=== PATIENT | female | born 1990 | race Caucasian/White ===

== ENCOUNTER 2016-06-05 23:53 | Emergency (ER) | payer MEDICAID ==
[~2016-06-05] VITALS: Ht 160 cm; Wt 65.8 kg
[~2016-06-05 23:53] MED LIST: AMOXICOT500 MG PO; AMOXIL500 M1 PO; AMOXIL500 MG PO; AZITHROMYCIN D250 M1 PO; BACTRIM DS 8001 TA1 PO; BACTRIM DS 8001 TAB PO; BACTROBAN CR, 115 GM TP; CIPRO 500MG TA500 MG PO; ETODOLAC400 MG PO; FIORICET1 CAP PO; FLAGYL 500MG.500 MG PO; FLAGYL500 M1 PO; IBU-4400 MG PO; IBUPROFEN200 MG PO; IBUPROFEN400 MG PO; IBUPROFEN800 MG PO; KEFLEX 500MG.500 MG PO; LEVAQUIN 750 M750 MG PO; LORTAB 5/500 501 TAB PO; LORTAB 500 MG-71 TAB PO; MACROBID 100MG100 M1 PO; MEDROL 4MG. DOSE4 MG PO; MOTRIN 400MG.400 MG PO; NAPROSYN500 M1 PO; NOMEDS *; PERCOCET 5/3251 EACH PO; PHENERGAN 25MG.25 M1 PO; POTASSIUM CHLO10 ME3 PO; PRENATAL PLUS1 TA1 PO; PROMETHAZINE HC25 M1 PO; PYRIDIUM 200MG200 MG PO; RONDEC-DM 118118 ML PO; TESSALON PERLE100 MG PO; TRIMOX500 MG PO; VIBRAMYCIN 100100 MG PO; VOLTAREN75 MG PO; ZOFRAN ODT4 MG PO; Zofran4 MG PO
[2016-06-06 00:16] LABS: URINE BILIRUBIN - DIPSTICK NEGATIVE (NEG); URINE BLOOD 1+ (NEG)
--- NOTE | 2016-06-06 00:27 | Emergency Room Report ---
History of Present Illness Time Seen by MD Cohn Presenting Problem in Triage Pt arrived:Walked Presenting Problem:PT C/O RIGHT SIDED BACK PAIN THAT AT TIMES GOES DOWN HER RIGHT LEG AND MAKES HER LEG GIVE OUT. 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 N Clinical Suspician of Infection? N Mental Status: 1 - Regular (Normal Baseline) Sepsis Risk:Low Sepsis Risk Have you (or family members/close friends) recently traveled outside the [place]? N If Yes, where/when: Have you had exposure to infectious disease within the past month? N TB? Other? Specify: Source patient, RN notes reviewed, family, old records Exam Limitations no limitations Comment rt sided back pain with rad to rt lower leg and recent uti with rest to septra Cardiac Chest Pain Chest pain indicative of cardiac No Timing/Duration this evening Severity moderate ALLERGIES Coded Allergies: No Known Allergies (04/11/16) Home Medications Reported Medications No Known Home Medications History Medical History General CAD? No Angina: No [place]: No Hypertension? No Hyperlipidemia? No CHF? No DVT? No PE? No COPD? No Asthma? No Anemia? No GERD? No Gastric ulcers? No GI Bleed? No Hernia? No Thyroid Problems? No Hypothyroidism? No CVA? No Seizures? No Diabetes? No Renal Insuffiency? No End Stage Renal Disease? No UTI? No Stones? No BPH? No GB Disease: No Nephritic Syndrome? No Asplenia? No Hepatitis? No Sickle Cell Disease? No Arthritis? No Migraines? No Cataracts? No Glaucoma? No MRSA? No HIV? No TB? No Anxiety? No Depression? No Cancer? No More? 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 Respiratory denies cough, denies shortness of breath, denies wheezing Cardiovascular denies chest pain, denies palpitations, denies syncope Gastrointestinal denies abdominal pain, denies nausea, denies vomiting Genitourinary denies: abnormal vaginal bleeding, dysuria, frequency, hesitancy, hematuria. Musculoskeletal see HPI, back pain, denies joint pain, denies joint swelling, denies neck pain Skin denies rash Psychiatric/Neurological denies headache, denies seizure Physical Exam Vital Signs Vital Signs Date Time Temp Pulse Resp B/P Pulse O2 O2 Flow FiO2 Ox Delivery Rate 06/06 0007 22 06/05 2358 98.0 97 18 133/87 99 - WBC >12,000 or <4,000 or 10% bands? 2 or more SIRS Criteria Met? B/P:133/87 MAP:102 Creatinine >2.0? UA output<0.5ml/kg/hr for 2 hrs? Platelet count >100,000? Lactate >2.0mmol/1? INR >1.2 or PTT > than 60 sec? Evidence of Organ Dysfunction? Provider documented clinical suspician of infection? N Sepsis Criteria Count: 1 Sepsis Risk: Low Sepsis Risk General Appearance no apparent distress Eye Exam - bilateral eye PERRL, bilateral eye EOMI Ear, Nose, Throat normal ENT inspection Neck supple Respiratory Status No: respiratory distress. 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 No Results/Orders Laboratory Tests 06/06/16 0000: Urine Color YELLOW, Urine Appearance CLEAR, Urine pH 6.5, Ur Specific [place] 1.020, Urine Protein 1+ H, Urine Ketones NEGATIVE, Urine Blood 1+ H, Urine Nitrate NEGATIVE, Urine Bilirubin NEGATIVE, Urine Urobilinogen 0.2, Ur Leukocyte Esterase 2+ H, Urine RBC 3-5, Urine WBC 5-10, Urine Bacteria 1+, Urine Mucus 1+ , Urine Glucose NEGATIVE Current Medication Orders Sig/Cam Start time Last Medication Dose Route Stop Time Status Admin Acetaminophen/ 1 VICKI ONCE ONE 06/06 44 AC Codeine Phosphate PO 06/06 45 Indomethacin 25 MG ONCE ONE 06/06 44 AC PO 06/06 45 Levofloxacin 500 MG ONCE ONE 06/065 AC PO 06/06 45 Ketorolac 60 MG ONCE ONE 06/06 0015 DC 06/06 Tromethamine IM 06/066 0007 Ketorolac 0 .STK-MED ONE 06/06 0005 DC Tromethamine .ROUTE Orders Procedure Date/time Status URINALYSIS/COMPLETE 06/06 0003 Complete URINE 06/06 0003 Complete CULTURE, URINE 06/06 0000 Active Departure Departure Time of Disposition 0036 Disposition DC Home or Self Care(routine) Clinical Impression Primary Impression: Sciatica Qualifiers: Laterality: right Qualified Code: M54.31 - Sciatica, right side Secondary Impressions: UTI (urinary tract infection) Qualifiers: Urinary tract infection type: acute cystitis Hematuria presence: without hematuria Qualified Code: N30.00 - Acute cystitis without hematuria Condition STABLE Referrals Beto Saldaña (Family) Patient Instructions DI for Sciatica Additional Instructions use meds and see pcp for follow up and check with your pcp about culture results Discharge Counseling Counseled pt/family regarding diagnosis, test results, follow up needs Prescriptions Current Visit Scripts Ciprofloxacin HCl (Cipro 500MG TAB) 500 MG PO BID #14 TAB Meloxicam (Mobic 7.5MG) 7.5 MG PO DAILY #7 TAB ED Critical Care Critical Care No at 0043
--- NOTE | 2016-06-06 00:27 | Emergency Room Report ---
History of Present Illness Time Seen by MD Cohn Presenting Problem in Triage Pt arrived:Walked Presenting Problem:PT C/O RIGHT SIDED BACK PAIN THAT AT TIMES GOES DOWN HER RIGHT LEG AND MAKES HER LEG GIVE OUT. 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 N Clinical Suspician of Infection? N Mental Status: 1 - Regular (Normal Baseline) Sepsis Risk:Low Sepsis Risk Have you (or family members/close friends) recently traveled outside the [place]? N If Yes, where/when: Have you had exposure to infectious disease within the past month? N TB? Other? Specify: Source patient, RN notes reviewed, family, old records Exam Limitations no limitations Comment rt sided back pain with rad to rt lower leg and recent uti with rest to septra Cardiac Chest Pain Chest pain indicative of cardiac No Timing/Duration this evening Severity moderate ALLERGIES Coded Allergies: No Known Allergies (04/11/16) Home Medications Reported Medications No Known Home Medications History Medical History General CAD? No Angina: No [place]: No Hypertension? No Hyperlipidemia? No CHF? No DVT? No PE? No COPD? No Asthma? No Anemia? No GERD? No Gastric ulcers? No GI Bleed? No Hernia? No Thyroid Problems? No Hypothyroidism? No CVA? No Seizures? No Diabetes? No Renal Insuffiency? No End Stage Renal Disease? No UTI? No Stones? No BPH? No GB Disease: No Nephritic Syndrome? No Asplenia? No Hepatitis? No Sickle Cell Disease? No Arthritis? No Migraines? No Cataracts? No Glaucoma? No MRSA? No HIV? No TB? No Anxiety? No Depression? No Cancer? No More? 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 Respiratory denies cough, denies shortness of breath, denies wheezing Cardiovascular denies chest pain, denies palpitations, denies syncope Gastrointestinal denies abdominal pain, denies nausea, denies vomiting Genitourinary denies: abnormal vaginal bleeding, dysuria, frequency, hesitancy, hematuria. Musculoskeletal see HPI, back pain, denies joint pain, denies joint swelling, denies neck pain Skin denies rash Psychiatric/Neurological denies headache, denies seizure Physical Exam Vital Signs Vital Signs Date Time Temp Pulse Resp B/P Pulse O2 O2 Flow FiO2 Ox Delivery Rate 06/06 0007 22 06/05 2358 98.0 97 18 133/87 99 - WBC >12,000 or <4,000 or 10% bands? 2 or more SIRS Criteria Met? B/P:133/87 MAP:102 Creatinine >2.0? UA output<0.5ml/kg/hr for 2 hrs? Platelet count >100,000? Lactate >2.0mmol/1? INR >1.2 or PTT > than 60 sec? Evidence of Organ Dysfunction? Provider documented clinical suspician of infection? N Sepsis Criteria Count: 1 Sepsis Risk: Low Sepsis Risk General Appearance no apparent distress Eye Exam - bilateral eye PERRL, bilateral eye EOMI Ear, Nose, Throat normal ENT inspection Neck supple Respiratory Status No: respiratory distress. 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 No Results/Orders Laboratory Tests 06/06/16 0000: Urine Color YELLOW, Urine Appearance CLEAR, Urine pH 6.5, Ur Specific [place] 1.020, Urine Protein 1+ H, Urine Ketones NEGATIVE, Urine Blood 1+ H, Urine Nitrate NEGATIVE, Urine Bilirubin NEGATIVE, Urine Urobilinogen 0.2, Ur Leukocyte Esterase 2+ H, Urine RBC 3-5, Urine WBC 5-10, Urine Bacteria 1+, Urine Mucus 1+ , Urine Glucose NEGATIVE Current Medication Orders Sig/Cam Start time Last Medication Dose Route Stop Time Status Admin Acetaminophen/ 1 VICKI ONCE ONE 06/06 44 AC Codeine Phosphate PO 06/06 45 Indomethacin 25 MG ONCE ONE 06/06 44 AC PO 06/06 45 Levofloxacin 500 MG ONCE ONE 06/065 AC PO 06/06 45 Ketorolac 60 MG ONCE ONE 06/06 0015 DC 06/06 Tromethamine IM 06/066 0007 Ketorolac 0 .STK-MED ONE 06/06 0005 DC Tromethamine .ROUTE Orders Procedure Date/time Status URINALYSIS/COMPLETE 06/06 0003 Complete URINE 06/06 0003 Complete CULTURE, URINE 06/06 0000 Active Departure Departure Time of Disposition 0036 Disposition DC Home or Self Care(routine) Clinical Impression Primary Impression: Sciatica Qualifiers: Laterality: right Qualified Code: M54.31 - Sciatica, right side Secondary Impressions: UTI (urinary tract infection) Qualifiers: Urinary tract infection type: acute cystitis Hematuria presence: without hematuria Qualified Code: N30.00 - Acute cystitis without hematuria Condition STABLE Referrals Beto Saldaña (Family) Patient Instructions DI for Sciatica Additional Instructions use meds and see pcp for follow up and check with your pcp about culture results Discharge Counseling Counseled pt/family regarding diagnosis, test results, follow up needs Prescriptions Current Visit Scripts Ciprofloxacin HCl (Cipro 500MG TAB) 500 MG PO BID #14 TAB Meloxicam (Mobic 7.5MG) 7.5 MG PO DAILY #7 TAB ED Critical Care Critical Care No at 0043
[2016-06-06] MEDS ORDERED: MOBIC7.5 MG PO (00:43)
[2016-06-06] MEDS ORDERED: CIPRO 500MG TA500 MG PO (00:43)
[2016-06-06 01:17] VITALS: BP 128/85
== END 2016-06-06 01:17 | disposition home or self-care (01) ==
LOC: ER 23:53
PROVIDERS: Emergency Medicine
DX: M54.31 Sciatica, right side (principal); N30.00 Acute cystitis without hematuria

== ENCOUNTER 2016-12-30 13:58 | Emergency (ER) | payer MEDICAID ==
[~2016-12-30] VITALS: Ht 160 cm; Wt 72.6 kg
[~2016-12-30 13:58] MED LIST changes: +MOBIC7.5 MG PO
[2016-12-30] MEDS ORDERED: PRENATAL PLUS1 TA1 PO (14:22)
[2016-12-30] MEDS ORDERED: KEFLEX500 M1 PO (14:52)
--- NOTE | 2016-12-30 14:54 | Emergency Room Report ---
History of Present Illness Time Seen by MD Boles Presenting Problem in Triage Pt arrived:Walked Presenting Problem:RED AREA ON R LOWER SIDE OF ABD, RAISED, PT REPORTS REMOVED BANDAID FROM AREA THIS MORNING AFTER IT BEING IN PLACE X2 DAYS, THICK DRAINAGE NOTED. PT REPORTS AREA WAS NOTICED 2 DAYS AGO AND "WAS JUST A BUMP", STATES SHE PLACED A BANDAID ON AT THAT TIME. 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 N Clinical Suspician of Infection? N Mental Status: 1 - Regular (Normal Baseline) Sepsis Risk:Low Sepsis Risk Have you (or family members/close friends) recently traveled outside the [place]? N If Yes, where/when: Have you had exposure to infectious disease within the past month? N TB? Other? Specify: Area of drainage and redness to abdomen the last few days, more drainage today. Is 18 weeks gravid, followed by Dr. Gonzalez with normal course and no OB symptoms today. No fever or vomiting. Not diabetic. ALLERGIES Coded Allergies: No Known Allergies (04/11/16) Home Medications Reported Medications MULTIVIT-MIN W/FE-FA ( Multivitamin Tablet) 1 TAB PO DAILY History Medical History General CAD? No Angina: No [place]: No Hypertension? No Hyperlipidemia? No CHF? No DVT? No PE? No COPD? No Asthma? No Anemia? No GERD? No Gastric ulcers? No GI Bleed? No Hernia? No Thyroid Problems? No Hypothyroidism? No CVA? No Seizures? No Diabetes? No Renal Insuffiency? No End Stage Renal Disease? No UTI? No Stones? No BPH? No GB Disease: No Nephritic Syndrome? No Asplenia? No Hepatitis? No Sickle Cell Disease? No Arthritis? No Migraines? No Cataracts? No Glaucoma? No MRSA? No HIV? No TB? No Anxiety? No Depression? No Cancer? No More? 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 Skin see HPI Physical Exam Vital Signs Vital Signs Date Time Temp Pulse Resp B/P Pulse O2 O2 Flow FiO2 Ox Delivery Rate 12/30 1410 98.4 95 18 113/62 99 General Appearance normal appearance, WD/WN, no apparent distress Eye Exam - bilateral eye normal exam, bilateral eye PERRL Respiratory Status Yes: trachea midline. No: respiratory distress. Cardiovascular no peripheral edema Gastrointestinal abdominal wall abscess, about two cm in diameter, actively draining with ten cm surrounding erythema, no streaks. FHT's on RN chart. Extremities normal range of motion, normal inspection Strength 5 Upper Ext (L), 5 Upper Ext (R), 5 Lower Ext (L), 5 Lower Ext (R) Neurologic alert, normal exam, no motor/sensory deficits, oriented x 3 Glascow Coma Scale Glascow Coma Scale Response Value EYE response: 4 Spontaneously 4 MOTOR response: 6 OBEYS 6 VERBAL response: 5 Oriented & Converses 5 Total 15 Skin intact (see above) Medical Decision Making LABS/Meds/Orders Pt receiving controlled substance in ED? No Results/Orders Orders Procedure Date/time Status ABCESS CULTURE 12/30 1439 Active Progress ED Progress Notes Date 12/30/16 Time 1446 Comment wound cultures obtained; patient advised will initiate Keflex in the meantime as safe in but will be referred to surgery for f/u and is advised may need further antibiotics. Departure Departure Time of Disposition 1448 Disposition DC Home or Self Care(routine) Clinical Impression Primary Impression: Abscess of abdominal wall Condition STABLE Referrals Katerina ROMERO,Allen RING MD,DANAY Schneider Patient Instructions Boil Additional Instructions Epsom salts in warm water compresses for ten to twenty minutes at a time every two hours while awake; see surgeon of choice on list provided for follow up in two to three days; Rx Keflex, take Tylenol for discomfort. Keep wound covered and dry at all times; do not go to work while area is actively draining as you are contagious. Discharge Counseling Counseled pt/family regarding diagnosis, medications/RX, home care, follow up needs Prescriptions Current Visit Scripts Cephalexin (Keflex 500MG) 500 MG PO Q6 #40 CAP ED Critical Care Critical Care No at [id number]
[2016-12-30 15:02] VITALS: BP 113/62
[2017-01-02] MEDS ORDERED: AMOXICOT500 MG PO (19:57)
== END 2016-12-30 15:02 | disposition home or self-care (01) ==
LOC: ER 13:58
DX: O98.812 Other maternal infectious and parasitic diseases complicating pregnancy, second trimester (principal); L02.211 Cutaneous abscess of abdominal wall; O99.332 Smoking (tobacco) complicating pregnancy, second trimester; F17.210 Nicotine dependence, cigarettes, uncomplicated; Z3A.18 18 weeks gestation of pregnancy

== ENCOUNTER 2017-01-02 16:55 | Emergency (ER) | payer MEDICAID ==
[~2017-01-02] VITALS: Ht 160 cm; Wt 72.6 kg
--- NOTE | 2017-01-02 17:12 | Emergency Room Report ---
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 N Clinical Suspician of Infection? N Mental Status: 1 - Regular (Normal Baseline) Sepsis Risk:Low Sepsis Risk Have you (or family members/close friends) recently traveled outside the [place]? N If Yes, where/when: Have you had exposure to infectious disease within the past month? N TB? Other? Specify: Source patient, RN notes reviewed Exam Limitations no limitations Comment Pt supposedly woke up this morning sick and vomiting and could not go to work. ? had some fever last night and has had a mild cough. She is 17 weeks gestation and had no problem with her other 2 pregnancies. Cardiac Chest Pain Chest pain indicative of cardiac No ALLERGIES Coded Allergies: No Known Allergies (04/11/16) Home Medications Active Scripts Cephalexin (Keflex 500MG) 500 MG PO Q6 #40 CAP Prov: 12/30/16 Reported Medications MULTIVIT-MIN W/FE-FA ( Multivitamin Tablet) 1 TAB PO DAILY History Medical History General CAD? No Angina: No [place]: No Hypertension? No Hyperlipidemia? No CHF? No DVT? No PE? No COPD? No Asthma? No Anemia? No GERD? No Gastric ulcers? No GI Bleed? No Hernia? No Thyroid Problems? No Hypothyroidism? No CVA? No Seizures? No Diabetes? No Renal Insuffiency? No End Stage Renal Disease? No UTI? No Stones? No BPH? No GB Disease: No Nephritic Syndrome? No Asplenia? No Hepatitis? No Sickle Cell Disease? No Arthritis? No Migraines? No Cataracts? No Glaucoma? No MRSA? No HIV? No TB? No Anxiety? No Depression? No Cancer? No More? 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 Lung Sounds bilateral: normal breath sounds. 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 No Results/Orders Laboratory Tests 01/02/17 1835: Urine Color YELLOW, Urine Appearance CLEAR, Urine pH 6.0, Ur Specific [place] <= 1.005, Urine Protein NEGATIVE, Urine Ketones NEGATIVE, Urine Blood NEGATIVE, Urine Nitrate NEGATIVE, Urine Bilirubin NEGATIVE, Urine Urobilinogen 0.2, Ur Leukocyte Esterase TRACE H, Urine RBC NONE, Urine WBC 5-10, Ur Squamous Epith Cells TNTC, Urine Bacteria 3+, Urine Glucose NEGATIVE 01/02/17 1826: Sodium 137, Potassium 3.5, Chloride 101, Carbon Dioxide 27, BUN 9, Creatinine 0.7, Estimated Creat Clear 140, Estimated GFR (MDRD) 101, Glucose 114 H, Calcium 9.1, Total Bilirubin 0.2, AST 9 L, ALT 14, Alkaline Phosphatase 73, Total Protein 7.4, Albumin 2.9 L, Globulin 4.5 H, Albumin/Globulin Ratio 0.6 L, WBC 10.9 H, RBC 4.43, Hgb 13.8, Hct 41.3, MCV 93.1, RDW 13.0, Plt Count 277, MPV 8.0, Gran % 70.6, Gran # 7.7, Lymphocytes % 23.5, Monocytes % 4.4, Eosinophils % 1.5, Basophils % 0.2, Lymphocytes # 2.5, Monocytes # 0.5, Eosinophils # 0.2, Basophils # 0.0, PUBS MCHC 33.5, MCH 31.2, Influenza Type A Ag NOT DETECTED, Influenza Type B Ag NOT DETECTED Current Medication Orders Sig/Cam Start time Last Medication Dose Route Stop Time Status Admin Sodium Chloride 1,000 ML .STK-MED ONE 01/02 1941 DC IV Sodium Chloride 10 ML PRN PRN 01/02 181 AC IV 01/03 180 Sodium Chloride 1,000 ML .Q1H1M 01/02 181 DC 01/02 IV 01/02 1915 1943 Sodium Chloride 10 ML PRN PRN 01/02 181 AC IV 01/03 180 Orders Procedure Date/time Status CULTURE, URINE 01/02 183 Active CULTURE, THROAT 01/02 182 Active IV SALINE LOCK 01/02 180 Active URINALYSIS/COMPLETE 01/02 180 Complete STREP SCREEN THROAT 01/02 180 Complete INFLUENZA A&B ANTIGENS 01/02 180 Complete CBC WITH AUTO DIFF 01/02 1801 Complete CHEM 12 PROFILE 01/02 1801 Complete Departure Departure Time of Disposition 1953 Disposition DC Home or Self Care(routine) Clinical Impression Primary Impression: Nausea and vomiting during Secondary Impressions: Cystitis Condition STABLE Referrals Jovi ROMERO,Sanchez Vital Patient Instructions DI for Nausea -- Adult, Nausea (Alternative Therapy), Nausea and Vomiting-Adult, Nausea of (Alternative Therapy), Support (Alternative Therapy) Additional Instructions Advised to keep water and crackers at bedside to help with nausea and followup with Dr. Espana for further evaluation Discharge Counseling Counseled pt/family regarding diagnosis, test results, home care, follow up needs Prescriptions Current Visit Scripts Amoxicillin (Amoxicillin 500MG) 500 MG PO TID #30 CAP ED Critical Care Critical Care No If Critical Care minutes are documented, the time involved in the performance of seperately reportable procedures was not counted toward critical care time documented. I directly delivered medical care to this critically ill and/or injured patient. Timely evaluation and treatment was necessary to address the significant organ system(s) dysfunction present in this patient. at 1957
--- NOTE | 2017-01-02 17:12 | Emergency Room Report ---
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 N Clinical Suspician of Infection? N Mental Status: 1 - Regular (Normal Baseline) Sepsis Risk:Low Sepsis Risk Have you (or family members/close friends) recently traveled outside the [place]? N If Yes, where/when: Have you had exposure to infectious disease within the past month? N TB? Other? Specify: Source patient, RN notes reviewed Exam Limitations no limitations Comment Pt supposedly woke up this morning sick and vomiting and could not go to work. ? had some fever last night and has had a mild cough. She is 17 weeks gestation and had no problem with her other 2 pregnancies. Cardiac Chest Pain Chest pain indicative of cardiac No ALLERGIES Coded Allergies: No Known Allergies (04/11/16) Home Medications Active Scripts Cephalexin (Keflex 500MG) 500 MG PO Q6 #40 CAP Prov: 12/30/16 Reported Medications MULTIVIT-MIN W/FE-FA ( Multivitamin Tablet) 1 TAB PO DAILY History Medical History General CAD? No Angina: No NE: No Hypertension? No Hyperlipidemia? No CHF? No DVT? No PE? No COPD? No Asthma? No Anemia? No GERD? No Gastric ulcers? No GI Bleed? No Hernia? No Thyroid Problems? No Hypothyroidism? No CVA? No Seizures? No Diabetes? No Renal Insuffiency? No End Stage Renal Disease? No UTI? No Stones? No BPH? No GB Disease: No Nephritic Syndrome? No Asplenia? No Hepatitis? No Sickle Cell Disease? No Arthritis? No Migraines? No Cataracts? No Glaucoma? No MRSA? No HIV? No TB? No Anxiety? No Depression? No Cancer? No More? 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 Lung Sounds bilateral: normal breath sounds. Cardiovascular normal exam, regular rate/rhythm Gastrointestinal normal bowel sounds, non tender Neurologic alert, color tester II-XII nml as tested Medical Decision Making LABS/Meds/Orders Pt receiving controlled substance in ED? No Results/Orders Laboratory Tests 01/02/17 1835: Urine Color YELLOW, Urine Appearance CLEAR, Urine pH 6.0, Ur Specific [place] <= 1.005, Urine Protein NEGATIVE, Urine Ketones NEGATIVE, Urine Blood NEGATIVE, Urine Nitrate NEGATIVE, Urine Bilirubin NEGATIVE, Urine Urobilinogen 0.2, Ur Leukocyte Esterase TRACE H, Urine RBC NONE, Urine WBC 5-10, Ur Squamous Epith Cells TNTC, Urine Bacteria 3+, Urine Glucose NEGATIVE 01/02/17 1826: Sodium 137, Potassium 3.5, Chloride 101, Carbon Dioxide 27, BUN 9, Creatinine 0.7, Estimated Creat Clear 140, Estimated GFR (MDRD) 101, Glucose 114 H, Calcium 9.1, Total Bilirubin 0.2, AST 9 L, ALT 14, Alkaline Phosphatase 73, Total Protein 7.4, Albumin 2.9 L, Globulin 4.5 H, Albumin/Globulin Ratio 0.6 L, WBC 10.9 H, RBC 4.43, Hgb 13.8, Hct 41.3, MCV 93.1, RDW 13.0, Plt Count 277, MPV 8.0, Gran % 70.6, Gran # 7.7, Lymphocytes % 23.5, Monocytes % 4.4, Eosinophils % 1.5, Basophils % 0.2, Lymphocytes # 2.5, Monocytes # 0.5, Eosinophils # 0.2, Basophils # 0.0, PUBS MCHC 33.5, MCH 31.2, Influenza Type A Ag NOT DETECTED, Influenza Type B Ag NOT DETECTED Current Medication Orders Sig/Cam Start time Last Medication Dose Route Stop Time Status Admin Sodium Chloride 1,000 ML .STK-MED ONE 01/02 1941 DC IV Sodium Chloride 10 ML PRN PRN 01/02 181 AC IV 01/03 180 Sodium Chloride 1,000 ML .Q1H1M 01/02 181 DC 01/02 IV 01/02 1915 1943 Sodium Chloride 10 ML PRN PRN 01/02 181 AC IV 01/03 180 Orders Procedure Date/time Status CULTURE, URINE 01/02 183 Active CULTURE, THROAT 01/02 182 Active IV SALINE LOCK 01/02 180 Active URINALYSIS/COMPLETE 01/02 180 Complete STREP SCREEN THROAT 01/02 180 Complete INFLUENZA A&B ANTIGENS 01/02 180 Complete CBC WITH AUTO DIFF 01/02 1801 Complete CHEM 12 PROFILE 01/02 1801 Complete Departure Departure Time of Disposition 1953 Disposition DC Home or Self Care(routine) Clinical Impression Primary Impression: Nausea and vomiting during Secondary Impressions: Cystitis Condition STABLE Referrals Jovi ROMERO,Sanchez Vital Patient Instructions DI for Nausea -- Adult, Nausea (Alternative Therapy), Nausea and Vomiting-Adult, Nausea of (Alternative Therapy), Support (Alternative Therapy) Additional Instructions Advised to keep water and crackers at bedside to help with nausea and followup with Dr. Espana for further evaluation Discharge Counseling Counseled pt/family regarding diagnosis, test results, home care, follow up needs Prescriptions Current Visit Scripts Amoxicillin (Amoxicillin 500MG) 500 MG PO TID #30 CAP ED Critical Care Critical Care No If Critical Care minutes are documented, the time involved in the performance of seperately reportable procedures was not counted toward critical care time documented. I directly delivered medical care to this critically ill and/or injured patient. Timely evaluation and treatment was necessary to address the significant organ system(s) dysfunction present in this patient. at 1957
[2017-01-02 18:43] LABS: HEMOGLOBIN 13.8 g/dL (12.2-16.2); LYMPH # 2.5 K/mm3 (0.7-4.5); LYMPH % 23.5 % (10-50.0)
[2017-01-02 18:47] LABS: URINE BILIRUBIN - DIPSTICK NEGATIVE (NEG); URINE BLOOD NEGATIVE (NEG)
[2017-01-02 18:50] LABS: STREP SCREEN (RAPID) NEGATIVE
[2017-01-02 19:17] LABS: URINE SQUAMOUS CELLS TNTC #/hpf (0-5)
[2017-01-02 21:06] VITALS: BP 94/51
== END 2017-01-02 21:13 | disposition home or self-care (01) ==
LOC: ER 16:55
PROVIDERS: General Practice
DX: O21.9 Vomiting of pregnancy, unspecified (principal); O23.12 Infections of bladder in pregnancy, second trimester; O99.332 Smoking (tobacco) complicating pregnancy, second trimester; F17.210 Nicotine dependence, cigarettes, uncomplicated; Z3A.17 17 weeks gestation of pregnancy

== ENCOUNTER → 2017-01-19 | Outpatient (CLI) | payer MEDICAID ==
[~2017-01-19] MED LIST changes: +KEFLEX500 M1 PO
--- NOTE | 2017-01-21 14:50 | RADIOLOGY REPORT PS360 ---
US PREG COMP INDICATION: 20 WEEK ANATOMICAL SURVEY. TECHNIQUE: ultrasound transabdominal scanning/ SC COMPARISON: Ultrasound 11/09/2016 FINDINGS Single viable intrauterine gestation. Cephalic position. The cervix appears satisfactory. Long, closed and measuring 3.35 centimeter in length. Complete survey performed and was unremarkable on the submitted images as in PACS.No discrete anomalies identified on survey imaging by technologist Active fetus. Three-vessel cord with satisfactory umbilical cord insertion. . Survey of brain & ventricles. Face and neck survey unremarkable. Diaphragm & views chest unremarkable. abdomen: Both kidneys noted & unremarkable. Stomach noted & satisfactory. spine: Survey of the spine satisfactory with no anomalies identified nor imaged Both arms and legs noted. Amniotic fluid.-Adequate. Maternal adnexa -no significant findings. measurements:. Average ultrasound age 21 weeks and 2 days. Gestational age 20 week 6 day. BPD = 4.91 cm equaling 20 weeks 6 days OFD = 7.13 cm likely 23 weeks 0 days HC = 19.23 cm equaling 21 weeks 4 days AC = 16.3 centers equaling 21 weeks 3 days FL = 0.53 cm equaling 21 weeks 2 days Heart rate = 150 BPM. Cerebellum = 2.13 cm equaling 21 weeks 3 days IMPRESSION: Single viable intrauterine gestation in cephalic position currently. 21 weeks 2 daysaverage ultrasound age with today's measurements Posterior placenta. Active fetus. No discrete abnormalities on the ultrasound survey.
== END ==
LOC: RAD 13:00
DX: Z36.9 Encounter for antenatal screening, unspecified (principal)

== ENCOUNTER 2017-03-20 19:28 | Outpatient (CLI) | payer MEDICAID ==
[~2017-03-20] VITALS: Ht 157.5 cm; Wt 78.0 kg
[2017-03-20 20:22] LABS: URINE BLOOD NEGATIVE (NEG)
[2017-03-20 20:26] VITALS: BP 125/70
[2017-03-20 20:30] LABS: URINE BILIRUBIN - DIPSTICK 2+ (NEG)
[2017-03-20 20:44] LABS: AMPHETAMINES/METAMPHETAMINES NEGATIVE ng/mL (<1000)
[2017-03-20 20:55] LABS: URINE SQUAMOUS CELLS TNTC #/hpf (0-5)
== END 2017-03-20 22:41 | disposition home or self-care (01) ==
LOC: OBOUT 19:28 → OB 19:28 → OBOUT 22:41
PROVIDERS: Nurse Practitioner Obstetrics & Gynecology
DX: O26.93 Pregnancy related conditions, unspecified, third trimester (principal); Z3A.29 29 weeks gestation of pregnancy; R10.2 Pelvic and perineal pain